=== PATIENT | female | born 1970 | race Caucasian/White ===

== ENCOUNTER 2020-05-02 21:29 | Emergency (ER) | payer BC ==
[~2020-05-02] VITALS: Ht 165.1 cm; Wt 106.8 kg
[~2020-05-02 21:29] MED LIST: NAPR-683 PO
[2020-05-02] MEDS ORDERED: IV NORMAL SALINE 1,000ML 1,000 ML IV ONE (21:45)
[2020-05-02] MEDS ORDERED: ONDANSETRON PF 4 MG/2 ML VIAL. IVP ONE (21:45)
--- NOTE | 2020-05-02 22:00 | PHYS DOC ---
Past History Past Medical History: Hypertension Past Surgical History: Cholecystectomy, Tubal ligation Smoking: Non-smoker Alcohol Use: Rarely Drug Use: None General Adult EDM: Chief Complaint: NAUSEA/VOMITING/DIARRHEA HPI: HPI: Patient is a 49 year old female who presents for evaluation of nausea and vomiting that has been persistent for 2 days. She has had several episodes. However patient denies any diarrhea or abdominal pain. She has some limited diffuse cramping. There is no known sick contacts. Furthermore patient has no urinary complaints. Patient has no reported black, bloody or tarry stools. Review of Systems: Review of Systems: Constitutional: Denies fever or chills Eyes: Denies change in visual acuity HENT: Denies nasal congestion or sore throat Respiratory: Denies cough or shortness of breath Cardiovascular: Denies chest pain or edema GI: Denies abdominal pain, has nausea and vomiting, no bloody stools or diarrhea : Denies dysuria Musculoskeletal: Denies back pain or joint pain Integument: Denies rash Neurologic: Denies headache, focal weakness or sensory changes Endocrine: Denies polyuria or polydipsia Lymphatic: Denies swollen glands Psychiatric: Denies depression or anxiety Heart Score: Risk Factors: Risk Factors: DM, Current or recent (<one month) smoker, HTN, HLP, family history of CAD, obesity. Risk Scores: Score 0 - 3: 2.5% MACE over next 6 weeks - Discharge Home Score 4 - 6: 20.3% MACE over next 6 weeks - Admit for Clinical Observation Score 7 - 10: 72.7% MACE over next 6 weeks - Early Invasive Strategies Current Medications: Current Meds: Current Medications Medications (Trade) Dose Ordered Sig/Dixon Start Time Stop Time Status Last Admin Dose Admin Ondansetron HCl (Zofran) 4 mg 1X ONCE 05/02/20 21:45 05/02/20 21:54 DC Sodium Chloride 1,000 ml @ 1,000 mls/hr 1X ONCE 05/02/20 21:45 05/02/20 22:44 Allergies: Allergies: Allergies Coded Allergies Type Severity Reaction Last Updated Verified Penicillins Allergy Unknown 10/18/19 Yes Physical Exam: PE: Constitutional: Well developed, well nourished, mild distress, non-toxic appearance. [] HENT: Normocephalic, atraumatic, bilateral external ears normal, oropharynx moist, no oral exudates, nose normal. [] Eyes: PERRL, EOMI, conjunctiva normal, no discharge. [] Neck: Normal range of motion, no tenderness, supple, no stridor. [] Cardiovascular:Heart rate regular rhythm, no murmur [] Lungs & Thorax: Bilateral breath sounds clear to auscultation [] Abdomen: Bowel sounds normal, soft, no tenderness, no masses, no pulsatile masses. [] Skin: Warm, dry, no erythema, no rash. [] Back: No tenderness, no CVA tenderness. [] Extremities: No tenderness, no cyanosis, no clubbing, ROM intact, no edema. [] Neurologic: Alert and oriented X 3, normal motor function, normal sensory function, no focal deficits noted. [] Psychologic: Affect normal, judgement normal, mood normal. [] Current Patient Data: Labs: Laboratory Tests Test 05/02/20 21:49 05/02/20 22:17 05/02/20 23:00 Urine Collection Type Unknown Urine Color Yellow Urine Clarity Clear Urine pH 5.5 Urine Specific [place] >=1.030 Urine Protein 100 mg/dl Urine Glucose (UA) Neg mg/dL Urine Ketones (Stick) 40 mg/dL Urine Blood Neg Urine Nitrite Neg Urine Bilirubin Neg Urine Urobilinogen Dipstick 0.2 mg/dL Urine Leukocyte Esterase Neg Urine RBC 0 /HPF Urine WBC 1-4 /HPF Urine Squamous Epithelial Cells Many /LPF Urine Bacteria Few /HPF Bedside Urine HCG, Qualitative hcg negative White Blood Count 9.7 x10^3/uL Red Blood Count 4.74 x10^6/uL Hemoglobin 14.0 g/dL Hematocrit 41.2 % Mean Corpuscular Volume 87 fL Mean Corpuscular Hemoglobin 30 pg Mean Corpuscular Hemoglobin Concent 34 g/dL Red Cell Distribution Width 12.8 % Platelet Count 236 x10^3/uL Neutrophils (%) (Auto) 81 % Lymphocytes (%) (Auto) 14 % Monocytes (%) (Auto) 5 % Eosinophils (%) (Auto) 1 % Basophils (%) (Auto) 0 % Neutrophils # (Auto) 7.8 x10^3uL Lymphocytes # (Auto) 1.3 x10^3/uL Monocytes # (Auto) 0.5 x10^3/uL Eosinophils # (Auto) 0.0 x10^3/uL Basophils # (Auto) 0.0 x10^3/uL Sodium Level 143 mmol/L Potassium Level 3.6 mmol/L Chloride Level 105 mmol/L Carbon Dioxide Level 26 mmol/L Anion Gap 12 Blood Urea Nitrogen 17 mg/dL Creatinine 0.7 mg/dL Estimated GFR (Cockcroft-Gault) 89.3 BUN/Creatinine Ratio 24 Glucose Level 120 mg/dL Calcium Level 9.0 mg/dL Total Bilirubin 1.0 mg/dL Aspartate Amino Transf (AST/SGOT) 14 U/L Alanine Aminotransferase (ALT/SGPT) 21 U/L Alkaline Phosphatase 98 U/L Troponin I Quantitative < 0.017 ng/mL Total Protein 7.0 g/dL Albumin 4.0 g/dL Albumin/Globulin Ratio 1.3 Lipase 116 U/L Current Medications Medications (Trade) Dose Ordered Sig/Dixon Route PRN Reason Start Time Stop Time Status Last Admin Dose Admin Ondansetron HCl (Zofran) 4 mg 1X ONCE IVP 05/02/20 21:45 05/02/20 21:54 DC 05/02/20 22:45 Sodium Chloride 1,000 ml @ 1,000 mls/hr 1X ONCE IV 05/02/20 21:45 05/02/20 22:44 DC Vital Signs: Vital Signs Date Time Temp Pulse Resp B/P (MAP) Pulse Ox O2 Delivery O2 Flow Rate FiO2 05/02/20 21:36 98.9 100 18 161/98 (119) 98 Room Air EKG: EKG: Normal sinus rhythm, rate 68, inverted T wave lead III, otherwise essentially normal EKG, not STEMI read at 2345 [] Radiology/Procedures: Radiology/Procedures: [address] [address] IMAGING REPORT Signed PATIENT: ERICK HEARD ACCOUNT: [id number] : 1970 LOCATION: ER AGE: 49 SEX: F EXAM STATUS: REG ER ORD. PHYSICIAN: FRANDY JEFFERSON DO REASON: diarrhea, abd discomfort PROCEDURE: ACUTE ABDOMEN SERIES Study: CR ACUTE ABDOMEN SERIES Indication: Diarrhea. Abdominal discomfort. Comparison: None. Findings: Unremarkable chest. No free air under the diaphragm. Nonspecific paucity of small bowel gas. The descending colon to the rectum is collapsed with only a small focus of gas within the rectum. Small amount of well-formed stool within the ascending colon. Cholecystectomy clips. Impression: 1. Nonspecific paucity of small bowel gas. The collective bowel gas pattern is nonobstructive. No free air. 2. Unremarkable chest. Electronically signed by: RITU HUGHES MD (05/02/2020 11:28 PM) [id number] DICTATED AND SIGNED BY: RITU HUGHES MD DATE: 05/02/20 2328 CC: JEFF CULP; FRANDY JEFFERSON DO ~ [] Course & Med Decision Making: Course & Med Decision Making Pertinent Labs and Imaging studies reviewed. (See chart for details) [] Dragon Disclaimer: Dragon Disclaimer: This electronic medical record was generated, in whole or in part, using a voice recognition dictation system. 0007 stable, feeling somewhat better at this time but having persistent nausea. There is no reported abdominal pain at this time. Emergency department work-up did not reveal obvious cause of her symptoms. She had essentially normal blood work with exception of some mild dehydration. Plain film x-rays were also unremarkable. EKG and troponin were normal. Close follow-up recommended. Prescription for Zofran and Pepcid given Departure Departure: Impression: Primary Impression: Generalized abdominal cramping Additional Impression: Nausea and vomiting Qualified Codes: R11.2 - Nausea with vomiting, unspecified Disposition: 01 HOME/RESIDENCE PRIOR TO ADM Condition: STABLE Referrals: JEFF CULP (PCP) Patient Instructions: Abdominal Pain (Nonspecific), Nausea and Vomiting Additional Instructions: [place] diet, drink plenty fluids, if symptoms worsen including bloody stools, fevers and chills or localized abdominal pain return for reassessment. Call and see your doctor right away and follow-up Scripts Famotidine (PEPCID) 20 Mg Tablet 1 TAB PO BID for abd pain, #30 TAB 3 Refills Prov: FRANDY JEFFERSON DO 05/03/20 Ondansetron Hcl (ZOFRAN) 4 Mg Tablet 1 TAB PO PRN Q6HRS PRN for NAUSEA, #12 TAB Prov: FRANDY JEFFERSON DO 05/03/20 Justification of Admission: Justification of Admission: Justification of Admission Dx: N/A FRANDY JEFFERSON DO May 02, 2020 22:00
[2020-05-02 23:19] LABS: BILIRUBIN,URINE NEG (NEG); CLARITY,URINE CLEAR; COLOR,URINE YELLOW; GLUCOSE,URINE NEG (NEG); NITRITE,URINE NEG (NEG); RBC,URINE 0 /HPF (0-2); SQUAMOUS EPITHELIAL CELL,UR MANY /LPF; UROBILINOGEN,URINE 0.2 mg/dL (0.2 mg/dL)
[2020-05-02 23:20] LABS: BACTERIA,URINE FEW /HPF (0-FEW)
[2020-05-02 23:21] LABS: BASO % 0 % (0-3); EOS % 1 % (0-3); HEMATOCRIT 41.2 % (36.0-47.0); LYMPH # 1.3 x10^3/uL (1.0-4.8); LYMPH % 14 % (24-48); MEAN CORPUSCULAR HEMOGLOBIN 30 pg (25-35); MEAN CORPUSCULAR HGB CONC 34 g/dL (31-37); MEAN CORPUSCULAR VOLUME 87 fL (79-100); MONO # 0.5 x10^3/uL (0.0-1.1); MONO % 5 % (0-9); NEUT # 7.8 x10^3uL (1.8-7.7); NEUT % 81 % (31-73); PLATELET COUNT 236 x10^3/uL (140-400); RED BLOOD COUNT 4.74 x10^6/uL (3.50-5.40); RED CELL DISTRIBUTION WIDTH 12.8 % (11.5-14.5); WHITE BLOOD COUNT 9.7 x10^3/uL (4.0-11.0)
[2020-05-02 23:28] LABS: CREATININE 0.7 mg/dL (0.6-1.0); GFR 89.3; POTASSIUM 3.6 mmol/L (3.5-5.1)
--- NOTE | 2020-05-02 23:30 | RAD ---
Study: CR ACUTE ABDOMEN SERIES Indication: Diarrhea. Abdominal discomfort. Comparison: None. Findings: Unremarkable chest. No free air under the diaphragm. Nonspecific paucity of small bowel gas. The descending colon to the rectum is collapsed with only a small focus of gas within the rectum. Small amount of well-formed stool within the ascending colon. Cholecystectomy clips. Impression: 1. Nonspecific paucity of small bowel gas. The collective bowel gas pattern is nonobstructive. No free air. 2. Unremarkable chest. Electronically signed by: RITU HUGHES MD (05/02/2020 11:28 PM) [id number]
[2020-05-02 23:34] LABS: ALBUMIN/GLOBULIN RATIO 1.3 (1.0-1.7)
--- NOTE | 2020-05-02 23:49 | EKG ---
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
[2020-05-03] MEDS ORDERED: ONDA4TAB7 PO (00:11)
[2020-05-03] MEDS ORDERED: FAMO-63 PO (00:11)
[2020-05-03] MEDS ORDERED: METOCLOPRAMIDE HCL 10 MG/2 ML VIAL. IVP ONE (00:15)
[2020-05-03 00:28] VITALS: BP 128/63
== END 2020-05-03 00:35 | disposition home or self-care (01) ==
LOC: MERGE 21:29 → ER 21:29
DX: R10.84 Generalized abdominal pain (principal); R11.2 Nausea with vomiting, unspecified; I10 Essential (primary) hypertension; Z90.49 Acquired absence of other specified parts of digestive tract; Z98.51 Tubal ligation status; Z88.0 Allergy status to penicillin
CPT/HCPCS: 36415; 74022; 80053; 81001; 81025; 83690; 84484; 85025; 93005; 96361; 96374; 96375; 99285; J2405; J2765; J7030